=== PATIENT | male | born 1990 | race African-American/Black ===

== ENCOUNTER 2021-06-17 15:30 | Inpatient (IN) | payer OTHER ==
[2021-06-17 18:59] VITALS: BMI 22.6
[2021-06-17] MEDS ORDERED: MAG HYDROX/AL HYDROX/SIMETH 30 ML UNIT-DOSE CUP PO PRN (23:33)
[2021-06-17] MEDS ORDERED: MAGNESIUM HYDROX 2400MG/30ML ORAL SUSPENSION 30 ML CUP PO PRN (23:33)
[2021-06-17] MEDS ORDERED: NICOTINE POLACRILEX 2 MG GUM BUC PRN (23:33)
[2021-06-17] MEDS ORDERED: P-EPHED 60MG/TRIPROLIDI 2.5MG TABLET PO PRN (23:33)
[2021-06-17] MEDS ORDERED: IBUPROFEN 400 MG TABLET (FP) PO PRN (23:33)
[2021-06-17] MEDS ORDERED: MAGNESIUM CITRATE 300 ML BOTTLE PO PRN (23:33)
[2021-06-17] MEDS ORDERED: LOPERAMIDE HCL 2 MG CAPSULE PO PRN (23:33)
[2021-06-17] MEDS ORDERED: guaiFENesin 200 MG/10 ML 10 ML UNIT-DOSE CUPS PO PRN (23:33)
[2021-06-18] MEDS ORDERED: ACETAMINOPHEN 325 MG TABLET (FP) ONE (02:01)
[2021-06-18] MEDS ORDERED: METHOCARBAMOL 500 MG TABLET ONE (02:01)
[2021-06-18] MEDS: MELATONIN 5 MG TABLETS PO SCH ×2 (02:06→21:26)
[2021-06-18] MEDS: ACETAMINOPHEN 325 MG TABLET (FP) PO PRN ×2 (02:07→21:27)
[2021-06-18] MEDS ORDERED: TUBERCULIN PPD 5 TU/0.1ML VIAL ID ONE (06:57)
[2021-06-18] MEDS: PRENATAL VITAMINS W/ FOLIC ACID TABLET (FP) PO SCH (10:38)
[2021-06-18] MEDS: THIAMINE HCL 100 MG TABLET (FP) PO SCH (21:26)
[2021-06-18] MEDS: hydrOXYzine PAMOATE 25 MG CAPSULE (FP) PO PRN (21:26)
[2021-06-19 01:26] LABS: EPI CELLS 3 /uL (0-25.1); HYALINE CASTS 0 /uL (0-3.1); PH,URINE >= 9.0 (5.0-8.0); URINE APPEARANCE TURBID; URINE BACTERIA 1 /uL (0-1359); URINE BILIRUBIN NEGATIVE (NEGATIVE); URINE COLOR YELLOW; URINE GLUCOSE (UA) NEGATIVE (NEGATIVE); URINE KETONE NEGATIVE (NEGATIVE); URINE LEUK ESTERASE NEGATIVE (NEGATIVE); URINE NITRITE NEGATIVE (NEGATIVE); URINE PROTEIN 1+ (NEGATIVE); URINE RBC 4 /uL (0-23.9); URINE WBC 1 /uL (0-25.8)
[2021-06-19] MEDS: PRENATAL VITAMINS W/ FOLIC ACID TABLET (FP) PO SCH (10:13)
[2021-06-19 12:43] LABS: HEMATOCRIT 40.8 % (35.4-49); HEMOGLOBIN 14.1 GM/dL (11.7-16.9); MCH 30.9 pg (25.7-33.7); MCHC 34.7 g/dl (32.0-35.9); MEAN CELL VOLUME 89.2 fl (80-96); MEAN PLT VOLUME 9.5 fl (7.5-11.1); PLATELET COUNT 157 10^3/uL (134-434); RBC 4.57 M/mm3 (4.00-5.60); RDW 13.2 % (11.9-15.9); WHITE BLOOD COUNT 6.1 K/mm3 (4.0-10.0)
[2021-06-19 12:50] LABS: ALBUMIN 3.3 g/dl (3.4-5.0); BLOOD UREA NITROGEN 8.8 mg/dL (7-18); CALCIUM 8.6 mg/dL (8.5-10.1)
[2021-06-19 12:53] LABS: CREATININE 0.9 mg/dL (0.55-1.3)
[2021-06-19 12:56] LABS: BILIRUBIN,TOTAL 0.7 mg/dL (0.2-1); TOT PROT 7.2 g/dl (6.4-8.2)
[2021-06-19] MEDS: THIAMINE HCL 100 MG TABLET (FP) PO SCH (22:47)
[2021-06-19] MEDS: MELATONIN 5 MG TABLETS PO SCH (22:47)
[2021-06-19] MEDS: hydrOXYzine PAMOATE 25 MG CAPSULE (FP) PO PRN (22:48)
[2021-06-20] MEDS: PRENATAL VITAMINS W/ FOLIC ACID TABLET (FP) PO SCH (10:14)
[2021-06-20 16:45] LABS: SYPHILIS W/ RPR CONF NON-REACTIVE (NONREACTIVE)
[2021-06-20 17:21] LABS: HIV INTERPRETATION NEGATIVE (NEGATIVE)
[2021-06-20] MEDS: MELATONIN 5 MG TABLETS PO SCH (22:03)
[2021-06-20] MEDS: THIAMINE HCL 100 MG TABLET (FP) PO SCH (22:03)
[2021-06-20] MEDS: hydrOXYzine PAMOATE 25 MG CAPSULE (FP) PO PRN (22:03)
[2021-06-21] MEDS: PRENATAL VITAMINS W/ FOLIC ACID TABLET (FP) PO SCH (12:03)
[2021-06-21] MEDS: MELATONIN 5 MG TABLETS PO SCH (21:53)
[2021-06-21] MEDS: THIAMINE HCL 100 MG TABLET (FP) PO SCH (21:53)
[2021-06-21] MEDS: hydrOXYzine PAMOATE 25 MG CAPSULE (FP) PO PRN (21:53)
[2021-06-22] MEDS: PRENATAL VITAMINS W/ FOLIC ACID TABLET (FP) PO SCH (10:48)
[2021-06-22] MEDS: MELATONIN 5 MG TABLETS PO SCH (21:20)
[2021-06-22] MEDS: THIAMINE HCL 100 MG TABLET (FP) PO SCH (21:20)
[2021-06-22] MEDS: hydrOXYzine PAMOATE 25 MG CAPSULE (FP) PO PRN (21:21)
[2021-06-23 12:08] LABS: SARS-CoV-2 NAA Not Detected (Not Detected)
[2021-06-23] MEDS: PRENATAL VITAMINS W/ FOLIC ACID TABLET (FP) PO SCH (12:16)
[2021-06-23] MEDS: THIAMINE HCL 100 MG TABLET (FP) PO SCH (21:30)
[2021-06-23] MEDS: hydrOXYzine PAMOATE 25 MG CAPSULE (FP) PO PRN (21:30)
[2021-06-23] MEDS: MELATONIN 5 MG TABLETS PO SCH (21:30)
[2021-06-24] MEDS: PRENATAL VITAMINS W/ FOLIC ACID TABLET (FP) PO SCH (09:46)
[2021-06-24] MEDS: hydrOXYzine PAMOATE 25 MG CAPSULE (FP) PO PRN ×2 (09:46→21:31)
[2021-06-24] MEDS: THIAMINE HCL 100 MG TABLET (FP) PO SCH (21:31)
[2021-06-24] MEDS: MELATONIN 5 MG TABLETS PO SCH (21:31)
[2021-06-25] MEDS: PRENATAL VITAMINS W/ FOLIC ACID TABLET (FP) PO SCH (10:37)
[2021-06-25] MEDS: hydrOXYzine PAMOATE 25 MG CAPSULE (FP) PO PRN (21:25)
[2021-06-25] MEDS: MELATONIN 5 MG TABLETS PO SCH (21:25)
[2021-06-25] MEDS: THIAMINE HCL 100 MG TABLET (FP) PO SCH (21:25)
[2021-06-25] MEDS: ACETAMINOPHEN 325 MG TABLET (FP) PO PRN (21:26)
[2021-06-26] MEDS: PRENATAL VITAMINS W/ FOLIC ACID TABLET (FP) PO SCH (10:17)
[2021-06-26] MEDS: MELATONIN 5 MG TABLETS PO SCH (21:21)
[2021-06-26] MEDS: hydrOXYzine PAMOATE 25 MG CAPSULE (FP) PO PRN (21:21)
[2021-06-26] MEDS: THIAMINE HCL 100 MG TABLET (FP) PO SCH (21:21)
[2021-06-27 07:14] VITALS: BP 117/76; PULSE 86; TEMP 98.9
[2021-06-27] MEDS: PRENATAL VITAMINS W/ FOLIC ACID TABLET (FP) PO SCH (10:29)
[2021-06-27] MEDS: ACETAMINOPHEN 325 MG TABLET (FP) PO PRN (11:25)
[2021-06-27] MEDS ORDERED: METHOCARBAMOL 500 MG TABLET PO PRN (17:00)
[2021-06-27] MEDS: THIAMINE HCL 100 MG TABLET (FP) PO SCH (21:32)
[2021-06-27] MEDS: MELATONIN 5 MG TABLETS PO SCH (21:32)
== END 2021-06-27 22:55 | disposition left against medical advice (07) | DRG 770 ==
LOC: YASAS 15:30 → Y5N 23:48
PROVIDERS: ADMIT Allergy & Immunology; ATTEND Allergy & Immunology
PROC: HZ42ZZZ Group Counseling for Substance Abuse Treatment, Cognitive-Behavioral (ICD-10-PCS; principal; 2021-06-17)
DX: F14.20 Cocaine dependence, uncomplicated (principal); F17.210 Nicotine dependence, cigarettes, uncomplicated; F19.24 Other psychoactive substance dependence with psychoactive substance-induced mood disorder; F31.9 Bipolar disorder, unspecified; F41.9 Anxiety disorder, unspecified; L85.3 Xerosis cutis; B35.1 Tinea unguium; Z56.0 Unemployment, unspecified; Z59.02 Unsheltered homelessness
CPT/HCPCS: 36415; 80053; 81003; 85027; 86780; 86803; 87389; 87811; 93005; 93010; C9803; U0003; U0005

== ENCOUNTER 2024-06-23 11:16 | Inpatient (IN) | payer OTHER ==
[~2024-06-23 11:16] MED LIST: chlordiazePOXIDE HCL 25 MG CAPSULE PO SCH
[2024-06-23] MEDS ORDERED: LOPERAMIDE HCL 2 MG CAPSULE PO PRN (12:44)
[2024-06-23] MEDS ORDERED: POLYETHYLENE GLYCOL (HEALTHYLAX) 3350 17 GM PACKET PO PRN (12:44)
[2024-06-23] MEDS ORDERED: DICYCLOMINE HCL 10 MG CAPSULE PO PRN (12:44)
[2024-06-23] MEDS ORDERED: hydrOXYzine PAMOATE 25 MG CAPSULE (FP) PO PRN (12:44)
[2024-06-23] MEDS ORDERED: METHOCARBAMOL 500 MG TABLET PO PRN (12:44)
[2024-06-23] MEDS ORDERED: BISMUTH SUBSALICYLATE 262 MG/15 ML BTL PO PRN (12:44)
[2024-06-23] MEDS ORDERED: ONDANSETRON *ODT* 4 MG TABLET SL PRN (12:44)
[2024-06-23] MEDS ORDERED: guaiFENesin 600 MG TABLET.ER (FP) PO PRN (12:44)
[2024-06-23] MEDS ORDERED: BENZONATATE 200 MG CAPSULE PO PRN (12:44)
[2024-06-23] MEDS ORDERED: MAG HYDROX/AL HYDROX/SIMETH 30 ML UNIT-DOSE CUP PO PRN (12:44)
[2024-06-23] MEDS ORDERED: BENZOCAINE/MENTHOL (CHLORASEPTIC ) LOZENGE MM PRN (12:44)
[2024-06-23] MEDS ORDERED: MAGNESIUM HYDROX 2400MG/30ML ORAL SUSPENSION 30 ML CUP PO PRN (12:44)
[2024-06-23] MEDS ORDERED: NICOTINE POLACRILEX 2 MG LOZENGE BC PRN (12:44)
[2024-06-23] MEDS ORDERED: IBUPROFEN 400 MG TABLET (FP) PO PRN (12:44)
[2024-06-23] MEDS ORDERED: NALOXONE (NARCAN) HCL 4 MG/0.1 ML SPRAY NS PRN (12:44)
[2024-06-23] MEDS ORDERED: NICOTINE POLACRILEX 2 MG GUM BUC PRN (12:44)
[2024-06-23] MEDS ORDERED: BENZOCAINE 20 % GEL TUBE MM PRN (12:46)
[2024-06-23] MEDS ORDERED: chlordiazePOXIDE HCL 25 MG CAPSULE ONE (13:58)
[2024-06-23] MEDS: chlordiazePOXIDE HCL 25 MG CAPSULE PO SCH (14:01)
[2024-06-23] MEDS: NALTREXONE HCL 50 MG TABLET PO ONE (17:38)
[2024-06-23] MEDS: CEPHALEXIN MONOHYDRATE 500 MG CAPSULE (UD) PO SCH (22:28)
[2024-06-23] MEDS: THIAMINE 100 MG TABLET PO SCH (22:28)
[2024-06-23] MEDS: IBUPROFEN 600 MG TABLET (FP) PO PRN (22:31)
[2024-06-23] MEDS: chlordiazePOXIDE HCL 25 MG CAPSULE PO PRN (22:37)
[2024-06-23] MEDS: MELATONIN 5 MG TABLETS PO SCH (22:59)
[2024-06-24 09:19] LABS: HEMATOCRIT 39.2 % (35.4-49); HEMOGLOBIN 13.3 GM/dL (11.7-16.9); MCH 30.1 pg (25.7-33.7); MEAN CELL VOLUME 88.6 fl (80-96); MEAN PLT VOLUME 10.1 fl (7.5-11.1); PLATELET COUNT 244 10^3/uL (134-434); RBC 4.43 M/mm3 (4.00-5.60); RDW 12.5 % (11.9-15.9); WHITE BLOOD COUNT 5.5 K/mm3 (4.0-10.0)
[2024-06-24] MEDS: NALTREXONE HCL 50 MG TABLET PO SCH (10:55)
[2024-06-24] MEDS: PRENATAL VITAMINS W/ FOLIC ACID TABLET (FP) PO SCH (10:55)
[2024-06-24] MEDS: NICOTINE 14 MG/24 HOURS TOPICAL PATCH TD SCH (11:05)
[2024-06-24 13:12] LABS: POTASSIUM 3.5 mmol/L (3.5-5.1)
[2024-06-24 13:14] LABS: ALBUMIN 3.4 g/dl (3.4-5.0); BLOOD UREA NITROGEN 14.1 mg/dL (7-18); CALCIUM 9.2 mg/dL (8.5-10.1)
[2024-06-24 13:17] LABS: CREATININE 0.9 mg/dL (0.55-1.3)
[2024-06-24 13:19] LABS: BILIRUBIN,TOTAL 0.3 mg/dL (0.2-1); TOT PROT 7.3 g/dl (6.4-8.2)
[2024-06-24 21:26] VITALS: BMI 22.6
[2024-06-25] MEDS: ACETAMINOPHEN 325 MG TABLET (FP) PO PRN (00:07)
[2024-06-25] MEDS: chlordiazePOXIDE HCL 25 MG CAPSULE PO SCH (06:38)
[2024-06-25] MEDS: AMOX TR/POT CLAV 875MG/125MG TABLETS (FP) PO SCH (07:44)
[2024-06-25] MEDS: chlordiazePOXIDE HCL 10 MG CAPSULE PO SCH (17:18)
[2024-06-26] MEDS ORDERED: chlordiazePOXIDE HCL 10 MG CAPSULE PO PRN
[2024-06-26] MEDS: chlordiazePOXIDE HCL 10 MG CAPSULE PO SCH (05:55)
[2024-06-26 20:48] VITALS: TEMP 97.5
[2024-06-27] MEDS: chlordiazePOXIDE HCL 10 MG CAPSULE PO SCH (05:23)
[2024-06-27 07:09] VITALS: BP 96/46; PULSE 69; RESP 16
[2024-06-28] MEDS ORDERED: chlordiazePOXIDE HCL 10 MG CAPSULE PO ONE (05:00)
== END 2024-06-27 10:36 | disposition home or self-care (01) | DRG 774 ==
LOC: YASAS 11:16 → Y6N 13:56
PROVIDERS: ADMIT Allergy & Immunology; ATTEND Allergy & Immunology
PROC: HZ2ZZZZ Detoxification Services for Substance Abuse Treatment (ICD-10-PCS; principal; 2024-06-23)
DX: F10.230 Alcohol dependence with withdrawal, uncomplicated (principal); F14.20 Cocaine dependence, uncomplicated; F16.20 Hallucinogen dependence, uncomplicated; F12.20 Cannabis dependence, uncomplicated; F17.210 Nicotine dependence, cigarettes, uncomplicated; F31.9 Bipolar disorder, unspecified; F19.24 Other psychoactive substance dependence with psychoactive substance-induced mood disorder; S01.511A Laceration without foreign body of lip, initial encounter; Y04.0XXA Assault by unarmed brawl or fight, initial encounter; Y93.89 Activity, other specified; Y92.89 Other specified places as the place of occurrence of the external cause; Z89.202 Acquired absence of left upper limb, unspecified level
CPT/HCPCS: 36415; 80053; 80305; 80307; 85027; 86780; 93005; 93010

== ENCOUNTER 2024-12-08 19:55 | Inpatient (IN) | payer OTHER ==
[2024-12-08 20:52] VITALS: BMI 22.6
[2024-12-08] MEDS ORDERED: MAG HYDROX/AL HYDROX/SIMETH 30 ML UNIT-DOSE CUP PO PRN (23:25)
[2024-12-08] MEDS ORDERED: POLYETHYLENE GLYCOL (HEALTHYLAX) 3350 17 GM PACKET PO PRN (23:25)
[2024-12-08] MEDS ORDERED: BENZONATATE 200 MG CAPSULE PO PRN (23:25)
[2024-12-08] MEDS ORDERED: NICOTINE POLACRILEX 2 MG GUM BUC PRN (23:25)
[2024-12-08] MEDS ORDERED: guaiFENesin 600 MG TABLET.ER (FP) PO PRN (23:25)
[2024-12-08] MEDS ORDERED: MAGNESIUM HYDROX 2400MG/30ML ORAL SUSPENSION 30 ML CUP PO PRN (23:25)
[2024-12-08] MEDS ORDERED: hydrOXYzine PAMOATE 25 MG CAPSULE (FP) PO PRN (23:25)
[2024-12-08] MEDS ORDERED: NALOXONE (NARCAN) HCL 4 MG/0.1 ML SPRAY NS PRN (23:25)
[2024-12-08] MEDS ORDERED: IBUPROFEN 400 MG TABLET (FP) PO PRN (23:25)
[2024-12-08] MEDS ORDERED: BENZOCAINE/MENTHOL (CHLORASEPTIC ) LOZENGE MM PRN (23:25)
[2024-12-08] MEDS ORDERED: LOPERAMIDE HCL 2 MG CAPSULE PO PRN (23:25)
[2024-12-09] MEDS: MELATONIN 5 MG TABLETS PO SCH (00:35)
[2024-12-09] MEDS: NICOTINE 14 MG/24 HOURS TOPICAL PATCH TD SCH (10:46)
[2024-12-09] MEDS: PRENATAL VITAMINS W/ FOLIC ACID TABLET (FP) PO SCH (10:46)
[2024-12-09 11:10] LABS: MCHC 33.1 g/dl (32.3-36.5); MEAN CELL VOLUME 91.4 fl (79.0-92.2); MEAN PLT VOLUME 11.6 fl (9.4-12.4); RDW 12.2 % (12.0-15.6)
[2024-12-09 11:13] LABS: URINE APPEARANCE CLEAR; URINE BILIRUBIN NEGATIVE (NEGATIVE); URINE COLOR YELLOW; URINE GLUCOSE (UA) NEGATIVE (NEGATIVE); URINE KETONE NEGATIVE (NEGATIVE); URINE LEUK ESTERASE NEGATIVE (NEGATIVE); URINE NITRITE NEGATIVE (NEGATIVE); URINE PROTEIN NEGATIVE (NEGATIVE); URINE UROBILINOGEN 1.0 mg/dL (0.2-1.0)
[2024-12-09 11:46] LABS: GLUCOSE,RANDOM 99 mg/dL (74-106)
[2024-12-09 11:47] LABS: TOT PROT 6.0 g/dl (6.4-8.2)
[2024-12-09 11:48] LABS: CO2 23 mmol/L (21-32)
[2024-12-09 11:49] LABS: ALK PHOS 71 U/L (40-150)
[2024-12-09 11:52] LABS: SGOT/AST 34 U/L (5-34); SGPT/ALT 14 U/L (0-55)
[2024-12-09 12:16] LABS: CREATININE 0.69 mg/dL (0.55-1.3)
[2024-12-09] MEDS: BACITRACIN 0.9 GM PACKET TP SCH (21:39)
[2024-12-09] MEDS: THIAMINE 100 MG TABLET PO SCH (21:39)
[2024-12-10] MEDS: GABAPENTIN 100 MG CAPSULE PO SCH (14:39)
[2024-12-10] MEDS: BACLOFEN 10 MG TABLET (FP) PO SCH (21:09)
[2024-12-11] MEDS: IBUPROFEN 600 MG TABLET (FP) PO PRN (01:00)
[2024-12-11 05:26] VITALS: RESP 16
[2024-12-11] MEDS: NALTREXONE HCL 50 MG TABLET PO ONE (10:04)
[2024-12-11] MEDS: BACITRACIN ZINC 15 GM TUBE TOPICAL OINTMENT TP SCH (13:15)
[2024-12-12] MEDS: NALTREXONE HCL 50 MG TABLET PO SCH (10:25)
[2024-12-13 05:26] VITALS: TEMP 97.1
[2024-12-13] MEDS: ACETAMINOPHEN 325 MG TABLET (FP) PO PRN (14:31)
[2024-12-14 05:40] VITALS: BP 116/71; PULSE 63
== END 2024-12-14 13:05 | disposition left against medical advice (07) | DRG 770 ==
LOC: YASAS 19:55 → Y3NR 23:36 → Y3W 12-09 10:14
PROVIDERS: ADMIT Allergy & Immunology; ATTEND Psychiatry & Neurology Pain Medicine
PROC: HZ42ZZZ Group Counseling for Substance Abuse Treatment, Cognitive-Behavioral (ICD-10-PCS; principal; 2024-12-08)
DX: F10.20 Alcohol dependence, uncomplicated (principal); F14.20 Cocaine dependence, uncomplicated; F16.20 Hallucinogen dependence, uncomplicated; F12.20 Cannabis dependence, uncomplicated; F17.210 Nicotine dependence, cigarettes, uncomplicated; F31.9 Bipolar disorder, unspecified; F41.9 Anxiety disorder, unspecified; L98.8 Other specified disorders of the skin and subcutaneous tissue; Z89.202 Acquired absence of left upper limb, unspecified level
CPT/HCPCS: 36415; 80053; 80307; 81003; 85027; 86780; 93005; 93010; J0475